=== PATIENT | female | born 1930 | race Caucasian/White ===

== ENCOUNTER 2017-05-20 05:26 | Day surgery (SDC) | payer OTHER ==
[~2017-05-20] VITALS: Ht 160 cm; Wt 66.7 kg
--- NOTE | ~2017-05-20 | O ---
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 PROCEDURES: 1. Left lower lid entropion repair. 2. Resection of left upper lid anterior lamella with flap repair of entropion. SURGEON: Kwesi Hussein M.D. ORAL HYGIENIST: None. ANESTHESIA: MAC. COMPLICATIONS: None. 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 She presents today for a left upper and lower lid margin surgery in order to attempt to improve her level of comfort and reduce her risk of progressive ocular degradation. Informed consent was obtained to include but not limited to the potential risk for bleeding, infection, and the need for further surgery or treatment. DESCRIPTION OF PROCEDURE: The patient was taken to the operating room, where 2% Xylocaine with epinephrine mixed with equal parts 0.75% Marcaine with Wydase was administered transcutaneously and transconjunctivally to the left upper and lower lids. The patient was subsequently prepped and draped in the usual sterile fashion. Attention was first turned to the left lower lid. An #11 blade was used to separate the lid from the barraza line into an anterior and posterior lamella. The anterior lamella was then resected across the width of the lid removing all of the lash follicles. Transconjunctival everting 5-0 chromic sutures were then placed across the width of the lid. [address] [address] OPERATIVE REPORT Name: ALEX KUMAR Room #: DEP [facility] M..#: [id number] Admission: 05/20/17 Attend Phys: Kwesi Hussein MD Discharge: 05/20/17 Date of : 30 Report #: [id number] The left upper lid was then everted and an 11 blade used to separate the anterior and posterior lamella here. The anterior lamella was then resected removing the lash bearing portion of the lid margin. The anterior lamella was then dissected free in the and recessed. It was reattached with interrupted mattress 6-0 plain gut sutures pulling the lid margin superiorly. The wound was then cleaned and dressed with erythromycin ointment. The patient subsequently transported to the recovery area having tolerated the procedures well with no anesthetic or operative complications being noted. <ELECTRONICALLY SIGNED> By: Kwesi Hussein MD 05/24/17 0614 [id number] [id number] Kwesi Hussein MD /nt
[~2017-05-20 05:26] MED LIST: ASPIR 8181 MG PO; ATORVASTATIN CA40 MG PO; CALCIUM 600 +1 EAC1 PO; CELEXA40 MG PO; COREG6.25 MG PO; FISH OIL 1,2001 EAC4 PO; FLAX OIL1000 MG PO; KLOR-CON 1010 MEQ PO; LASIX 40 MG TAB40 M2 PO; LASIX 80 MG TAB80 MG PO; LISINOPRIL2.5 MG PO; PRADAXA150 MG PO; TRAZODONE HCL50 MG PO; VITAMIN B COMP1 EACH PO
[2017-05-20 12:40] VITALS: BP 135/79
== END 2017-05-20 16:00 | disposition home or self-care (01) ==
LOC: OR 05:26 → TBA 05:26 → OR 09:28
DX: H02.004 Unspecified entropion of left upper eyelid (principal); H02.005 Unspecified entropion of left lower eyelid; H11.242 Scarring of conjunctiva, left eye; I11.0 Hypertensive heart disease with heart failure; I50.9 Heart failure, unspecified; E11.9 Type 2 diabetes mellitus without complications; E78.00 Pure hypercholesterolemia, unspecified; F41.8 Other specified anxiety disorders; F32.89 Other specified depressive episodes; Z79.899 Other long term (current) drug therapy; Z95.0 Presence of cardiac pacemaker; Z95.1 Presence of aortocoronary bypass graft; Z98.890 Other specified postprocedural states; Z90.49 Acquired absence of other specified parts of digestive tract; Z90.710 Acquired absence of both cervix and uterus; Z88.2 Allergy status to sulfonamides; Z88.8 Allergy status to other drugs, medicaments and biological substances
CPT/HCPCS: 50010; 50101; 50386; 50398; 51636; 56527; 56531; 62110; 62850; 70005

== ENCOUNTER → 2019-10-23 | Outpatient (CLI) | payer OTHER ==
[~2019-10-23] MED LIST changes: +ELIQUIS5 MG PO; +LIPITOR40 MG PO
== END ==
LOC: LAB 10:19
PROVIDERS: ATTEND Student in an Organized Health Care Education/Training Program
DX: Z01.812 Encounter for preprocedural laboratory examination (principal); Z11.59 Encounter for screening for other viral diseases

== ENCOUNTER 2019-10-26 07:54 | Day surgery (SDC) | payer OTHER ==
[~2019-10-26] VITALS: Ht 160 cm; Wt 62.6 kg
[2019-10-26 09:22] VITALS: BP 149/59
--- NOTE | 2019-10-30 06:16 | O ---
[facility] Willian Patel [facility] [place] [address] OPERATIVE REPORT Name: ALEX KUMAR [facility] [id number] Admission: 10/26/19 Attend Phys: Kwesi Hussein MD Discharge: 10/26/19 Date of : 30 Report #: [id number] THIS REPORT FOR: cc: Ginette Caballero MD,Ginette Hussein,Kwesi Lyn MD ~ CC: Ginette Hussein DATE OF SERVICE: 10/26/2019 PREOPERATIVE DIAGNOSES: Left upper lid retraction with left upper lid entropion, keratopathy, left lower lid retraction, lagophthalmos. POSTOPERATIVE DIAGNOSES: Left upper lid retraction with left upper lid entropion, keratopathy, left lower lid retraction, lagophthalmos. PROCEDURE: Transconjunctival left lower lid and cheek lift with permanent left lateral tarsorrhaphy. SURGEON: Kwesi Hussein MD. CORPORATE JOB TITLES: None. ANESTHESIA: MAC. COMPLICATIONS: None. 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 She is experiencing progressive atrophy of her left-sided periorbital soft tissue, which causes the left upper lid to retract and it is entropion. 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 She presents today for a left lower lid and cheek procedure combined with a permanent lateral tarsorrhaphy to try to reduce her risk for loss of her eye. Informed consent was obtained to include but not limited to the potential risk for bleeding, infection, failure to improve the problem, the potential need for further surgery or treatment. DESCRIPTION OF PROCEDURE: The patient was taken to the operating room where 2% Xylocaine with epinephrine mixed with equal parts of 0.75% Marcaine with Wydase was administered transcutaneously and transconjunctivally to the left lower lid, the left lateral canthus, the left upper lid, the left cheek and the left infratemporal fossa. She was subsequently prepped and draped in the usual sterile fashion. [address] [address] OPERATIVE REPORT Name: ALEX KUMAR Room #: DEP [facility] M.R.#: [id number] Admission: 10/26/19 Attend Phys: Kwesi Hussein MD Discharge: 10/26/19 Date of : 30 Report #: [id number] An 11 blade was then used to separate the anterior and posterior lamella from the upper lid and the lower lid over the lateral half of the lid. The lash bearing portion of the lid margin was then excised from both the upper lid and the lower lid, removing all follicles visible. The lid margin was then excised across this same area to allow exposed tarsoconjunctival tissue. The left lower lid was then approached transconjunctivally into the premalar space. The lower lid and cheek were then elevated and resuspended with interrupted Vicryl sutures. This gave the amount of laxity necessary in order to be able to complete the lateral tarsorrhaphy. With the lower lid and cheek lifted, the tarsorrhaphy could be completed. Multiple interrupted mattress 6-0 Vicryl sutures were used to coapt the lid margin across the lateral half of the lid. The skin was then closed over the lateral half of the lid with interrupted 6-0 plain gut sutures and mattress 6-0 plain gut sutures. The lid margin coapted well and the closure appeared to be more than adequate. The wounds were then cleaned and dressed with erythromycin ointment. The patient subsequently transported to the recovery area having tolerated the procedure well with no anesthetic or operative complications being noted. <ELECTRONICALLY SIGNED> By: Kwesi Hussein MD 10/30/19 0616 1117 [id number] Kwesi Hussein MD /nt
== END 2019-10-26 12:30 | disposition home or self-care (01) ==
LOC: OR 07:54 → TBA 07:55 → OR 09:38
PROVIDERS: ATTEND Ophthalmology
DX: H02.534 Eyelid retraction left upper eyelid (principal); H02.535 Eyelid retraction left lower eyelid; H02.004 Unspecified entropion of left upper eyelid; H18.9 Unspecified disorder of cornea; H02.205 Unspecified lagophthalmos left lower eyelid; I11.0 Hypertensive heart disease with heart failure; I50.9 Heart failure, unspecified; I48.91 Unspecified atrial fibrillation; F32.9 Major depressive disorder, single episode, unspecified; G47.30 Sleep apnea, unspecified; E78.00 Pure hypercholesterolemia, unspecified; E11.9 Type 2 diabetes mellitus without complications; Z98.890 Other specified postprocedural states; Z79.899 Other long term (current) drug therapy; Z79.01 Long term (current) use of anticoagulants; Z90.49 Acquired absence of other specified parts of digestive tract; Z90.711 Acquired absence of uterus with remaining cervical stump; Z95.1 Presence of aortocoronary bypass graft; Z95.0 Presence of cardiac pacemaker; Z88.2 Allergy status to sulfonamides; Z88.8 Allergy status to other drugs, medicaments and biological substances
CPT/HCPCS: 50010; 50101; 50386; 50398; 51636; 56528; 56531; 62110; 62850; 70005